=== PATIENT | male | born 2000 | race Hispanic/Latino ===

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

== ENCOUNTER 2022-04-04 12:26 | Emergency (ER) | payer BC, OTHER ==
[~2022-04-04] VITALS: Ht 170.2 cm; Wt 72.6 kg
[2022-04-04] MEDS ORDERED: DICYCLOMINE 20MG (10MG/ML) AMP IM STA (13:53)
[2022-04-04] MEDS ORDERED: ONDANSETRON 4MG INJ IVP ONE (14:00)
[2022-04-04] MEDS ORDERED: FAMOTIDINE 20MG VIAL IV ONE (14:00)
[2022-04-04] MEDS ORDERED: 0.9%NACL 1000ML 1,000 ML IV ONE (14:00)
[2022-04-04 14:37] LABS: BASOPHILS % (AUTO) 0.2 % (0.0-5.0); HEMATOCRIT 46.8 % (42-54); LYMPHOCYTES % (AUTO) 11.1 % (21.0-51.0); MEAN CORPUSCULAR HEMOGLOBIN 32.3 pg (27.0-33.0); MEAN CORPUSCULAR VOLUME 92.1 fL (79-99); MONOCYTES % (AUTO) 11.1 % (3.0-13.0); NEUTROPHILS % (AUTO) 77.2 % (40.0-77.0); PLATELET COUNT (AUTO) 267 K/uL (130-400); RED BLOOD CELL COUNT(AUTO) 5.08 MIL/uL (4.50-6.20); WHITE BLOOD COUNT (AUTO) 11.5 K/uL (4.8-10.8)
[2022-04-04 14:53] LABS: APPEARANCE,URINE CLOUDY (CLEAR); BILIRUBIN,URINE 0.5 mg/dL (NEGATIVE); COLOR,URINE YELLOW (YELLOW); GLUCOSE, URINE (UA) NEGATIVE (NEGATIVE); KETONES,URINE 60 mg/dL (NEGATIVE); LEUKOCYTE ESTERASE ,URINE NEGATIVE Leu/uL (NEGATIVE); NITRATE,URINE NEGATIVE (NEGATIVE); OCCULT BLOOD,URINE MODERATE (NEGATIVE); PROTEIN,URINE 50 mg/dL (NEGATIVE)
[2022-04-04] MEDS ORDERED: MAG/ALUM/SIMETH 30 ML UDCUP PO ONE (15:00)
[2022-04-04] MEDS ORDERED: LIDOCAINE HCL 2% VISCOUS 15 ML UDCUP PO ONE (15:00)
[2022-04-04 15:01] LABS: CREATININE 0.9 mg/dL (0.5-1.5)
[2022-04-04 15:04] LABS: TOTAL PROTEIN, SERUM 8.6 g/dL (6.0-8.3)
[2022-04-04 15:06] LABS: BACTERIA,URINE RARE /HPF (None Seen); MUCUS,URINE MANY LPF (None Seen); OTHER CASTS, URINE 1 /LPF (None Seen); SQUAMOUS EPITHELIAL CELL,UR RARE /HPF (0-2)
[2022-04-04] MEDS ORDERED: POTASSIUM BICARB/CIT AC 25 MEQ TABLET.EFF PO ONE (16:00)
[2022-04-04] MEDS ORDERED: ONDA4TAB10 PO (16:02)
[2022-04-04] MEDS ORDERED: FAMO-136 PO (16:02)
[2022-04-04] MEDS ORDERED: ACET-66 PO (16:02)
[2022-04-04 16:08] VITALS: BP 118/65
== END 2022-04-04 16:15 | disposition home or self-care (01) ==
LOC: EDH 12:26
DX: J10.1 Influenza due to other identified influenza virus with other respiratory manifestations (principal); R10.13 Epigastric pain; R11.2 Nausea with vomiting, unspecified; Z79.899 Other long term (current) drug therapy; Z20.822 Contact with and (suspected) exposure to COVID-19
CPT/HCPCS: 99284; 96374; 96361; 87635; 96375; 80053; 83690; 85025; 87804 ×2; 81001; 36415; 96372; C9803; J3490; J7030; J2405; J0500